=== PATIENT | female | born 1980 | race Caucasian/White ===

== ENCOUNTER → 2020-04-07 | Outpatient (CLI) | payer OTHER ==
[~2020-04-07] MED LIST: DIAZ5TAB PO; DOCU-131 PO; ENOX40SY4 SQ; ESOM40CA PO; HYDR-3245 PO; IBUP-1222 PO
== END | disposition home or self-care (01) ==
LOC: CFH 14:41
PROVIDERS: ATTEND Physician Assistant
DX: N61.0 Mastitis without abscess (principal)
CPT/HCPCS: 77066; G0279